=== PATIENT | female | born 1995 | race African-American/Black ===

== ENCOUNTER 2017-10-14 13:32 | Emergency (ER) | payer MEDICARE, OTHER ==
[~2017-10-14] VITALS: Ht 167.6 cm; Wt 57.3 kg
[~2017-10-14 13:32] MED LIST: FOLI1TAB PO; METR-1 PO; MICO2%V VAGINAL
[2017-10-14] MEDS ORDERED: IOHEXOL 350 MG/ML 10 ML VIAL (for RAD DIAG) IVCONTRAST ONE (13:33)
[2017-10-14 13:34] VITALS: BP 115/68; PULSE 72; RESP 18; TEMP 98.9; O2SAT 97
[2017-10-14] MEDS ORDERED: NITR1CAP37 PO (14:45)
[2017-10-14 14:56] LABS: AUTOMATED NEUTROPHIL # 6.3 TH/MM3 (1.8-7.7); BASOPHIL % 0.2 % (0.0-2.0); EOSINOPHIL # 0.4 TH/MM3 (0-0.4); EOSINOPHIL % 3.7 % (0.0-4.0); HEMATOCRIT 22.7 % (35.0-46.0); LYMPH % 25.5 % (9.0-44.0); LYMPHOCYTE # 2.8 TH/MM3 (1.0-4.8); MEAN CELL VOLUME 85.8 FL (80.0-100.0); MEAN CORPUSCULAR HEMOGLOBIN 30.4 PG (27.0-34.0); MEAN CORPUSCULAR HGB CONC 35.4 % (32.0-36.0); MEAN PLATELET VOLUME 9.3 FL (7.0-11.0); MONO % 12.9 % (0.0-8.0); MONOCYTE # 1.4 TH/MM3 (0-0.9); NEUT % 57.7 % (16.0-70.0); PLATELET COUNT 532 TH/MM3 (150-450); RED BLOOD COUNT 2.64 MIL/MM3 (4.00-5.30); RED CELL DISTRIBUTION WIDTH 18.2 % (11.6-17.2)
[2017-10-14 15:09] LABS: BACTERIA, URINE FEW /hpf; BILIRUBIN, URINE NEG (NEG); BLOOD, URINE SMALL (NEG); GLUCOSE,URINE NEG (NEG); KETONE, URINE NEG (NEG); MUCUS URINE FEW /lpf (OCC); NITRITE,URINE NEG (NEG); SQUAMOUS EPITHELIAL CELL URINE 8 /hpf (0-5); URINE COLOR YELLOW (YELLW/STRAW); URINE LEUKOCYTE ESTERASE NEG (NEG)
[2017-10-14 15:14] LABS: ALT (GPT) 23 U/L (10-53); AST (GOT) 49 U/L (15-37); BICARBONATE 25.5 MEQ/L (21.0-32.0); BLOOD UREA NITROGEN 3 MG/DL (7-18); CALCIUM 8.7 MG/DL (8.5-10.1); CHLORIDE 107 MEQ/L (98-107); CREATININE 0.42 MG/DL (0.50-1.00); GLOMERULAR FILTRATION RATE 226 ML/MIN (>89); GLUCOSE,RANDOM 84 MG/DL (74-106); SODIUM (NA) 138 MEQ/L (136-145)
[2017-10-14 15:16] LABS: ALKALINE PHOSPHATASE 82 U/L (45-117); TOTAL BILIRUBIN ADULT 2.6 MG/DL (0.2-1.0)
[2017-10-14] MEDS ORDERED: SODIUM CHLORIDE 0.9% FLUSH 10 ML FLUSH IV FLUSH PRN (16:15)
[2017-10-14] MEDS ORDERED: SODIUM CHLOR 0.9% 1000 ML INJ 1,000 ML IV SCH (16:15)
[2017-10-14] MEDS ORDERED: KETOROLAC TROMETHAMINE 30 MG/ML (IVP) VIAL IVP ONE (16:15)
[2017-10-14 16:28] LABS: OVALOCYTES 1+ (NORMAL); SICKLE CELLS 2+ (NORMAL); STOMATOCYTES 1+ (NORMAL); TARGET CELLS 1+ (NORMAL)
--- NOTE | 2017-10-14 17:32 | RADRPT ---
EXAM DATE/TIME: 10/14/2017 17:16 [place] COMPARISON: No previous studies available for comparison. INDICATIONS : Bilateral back and abdomen pain for for days. IV CONTRAST: 71 cc Omnipaque 350 (iohexol) IV ORAL CONTRAST: No oral contrast ingested. RADIATION DOSE: 6.64 CTDIvol (mGy) MEDICAL HISTORY : Sickle cell disease. SURGICAL HISTORY : Cholecystectomy. ENCOUNTER: Initial ACUITY: 4 - 6 days PAIN SCALE: 4/10 LOCATION: Bilateral lower quadrant TECHNIQUE: Volumetric scanning of the abdomen and pelvis was performed. Using automated exposure control and ad justment of the mA and/or kV according to patient size, radiation dose was kept as low as reasonably achievable to obtain optimal diagnostic quality images. DICOM format image data is available electro nically for review and comparison. FINDINGS: LOWER LUNGS: The visualized lower lungs are clear. LIVER: Homogeneous density without lesion. There is no dilation of the biliary tree. No calcified gallston es. SPLEEN: Small in size without calcification PANCREAS: Within normal limits. KIDNEYS: Normal in size and shape. There is no mass, stone or hydronephrosis. ADRENAL GLANDS: Within normal limits. VASCULAR: There is no aortic aneurysm. BOWEL/MESENTERY: The stomach, small bowel, and colon demonstrate no acute abnormality. There is no free intraperitone al air or fluid. ABDOMINAL WALL: Within normal limits. RETROPERITONEUM: There is no lymphadenopathy. BLADDER: No wall thickening or mass. REPRODUCTIVE: Small cystic mass left adnexa region measuring 1.6 cm nonspecific. Tampon in place INGUINAL: There is no lymphadenopathy or hernia. MUSCULOSKELETAL: Changes typical of sickle cell. CONCLUSION: Bony changes typical of sickle cell. Negative for splenic or renal infarct Spleen size is small.. Michael Tineo MD FACR on October 14, 2017 at 17:28 Board Certified Radiologist. This report was verified electronically.
[2017-10-14] MEDS ORDERED: IBUP1TAB7 PO (17:48)
--- NOTE | 2017-10-14 17:50 | PD ---
HPI Chief Complaint: Abdominal Pain Time Seen by Provider: 15:07 Travel History International Travel<30 days: No Contact w/Intl Traveler<30days: No Traveled to known affect area: No History of Present Illness HPI 22-year-old female, with history of sickle cell, presents to the emergency Department with complaint of bilateral back pain that started on Thursday. Denies injury. Pain is mostly to the left side. Is currently being treated for urinary tract infection and has been taking nitrofurantoin for approximately 2 weeks. Denies dysuria, hematuria, vaginal discharge, vaginal odor. Denies risk of STD/STI. Denies fever, vomiting. Denies diabetes or cancer. Denies encopresis, incontinence, saddle anesthesias. Denies change in urine or stool. Pain is only when she moves. Better with a heating pad. Rates pain 8/10. Been taking ibuprofen and Tylenol for symptom management. Last menstrual period started this morning. No primary care provider. Allergies to fish and eggs. History of sickle cell and heart murmur. Has no medical complaints. No other modifying factors or associated signs and symptoms. PFSH Past Medical History Anemia: Yes Anxiety: Yes Heart Rhythm Problems: Yes (heart murmur) Cancer: No Cardiovascular Problems: Yes Diminished Hearing: No Endocrine: No Genitourinary: No Immune Disorder: No Musculoskeletal: No Neurologic: No Psychiatric: Yes Reproductive: No Respiratory: No Immunizations Current: Yes Sickle Cell Disease: Yes ?: Not LMP: 10/14/2017 Past Surgical History Other Surgery: Yes (gallstones removed) Social History Alcohol Use: Yes (occ) Tobacco Use: No Substance Use: No Allergies-Medications (Allergen,Severity, Reaction): Coded Allergies: Fish Containing Products (Unverified Allergy, Severe, Anaphylaxis, 10/14/17 ) sword fish egg (Unverified Allergy, Severe, Anaphylaxis, 10/14/17) Reported Meds & Prescriptions Reported Meds & Active Scripts Active Ibuprofen 800 Mg Tab 800 Mg PO Q6HR PRN Reported Nitrofurantoin Macrocrystal 50 Mg Cap 50 Mg PO BID Review of Systems Except as stated in HPI: all other systems reviewed are Neg Physical Exam Narrative GENERAL: Well-nourished, well-developed black female patient, in no acute distress; afebrile, nontoxic-appearing SKIN: Warm and dry. No rash. HEAD: Atraumatic. Normocephalic. EYES: Pupils equal and round. No scleral icterus. No injection or drainage. ENT: Mucosa pink and moist. NECK: Trachea midline. CARDIOVASCULAR: Regular rate and rhythm. No murmur appreciated. RESPIRATORY: No accessory muscle use. Clear to auscultation. Breath sounds equal bilaterally. GASTROINTESTINAL: Abdomen soft, non-tender, nondistended. Hepatic and splenic margins not palpable. Bowel sounds are active 4 quadrants. Bladder nontender and nondistended. MUSCULOSKELETAL: Bilateral lower extremities supple and non-tense with 2+ pedal pulses and sensory intact; with full range of motion and 5/5 strength. 2 + DTRs bilaterally. Active dorsiflexion and extension of bilateral feet. Bilateral straight leg raise is negative for low back pain. Ambulatory in room with normal gait. Sitting up in bed at 90. No obvious deformities. No clubbing. No cyanosis. No edema. BACK: Left CVA tenderness. No midline point tenderness on palpation of the lumbar spine. No reproducible Tenderness on palpation of bilateral lumbar paraspinal or iliosacral area. No obvious deformities. NEUROLOGICAL: Awake and alert. Oriented 3. No obvious cranial nerve deficits. Motor grossly within normal limits. Normal speech. Moves all extremities. 5/5 strength to all extremities. PSYCHIATRIC: Appropriate mood and affect; insight and judgment normal. Data Data Last Documented VS Vital Signs Date Time Temp Pulse Resp B/P (MAP) Pulse Ox O2 Delivery O2 Flow Rate FiO2 10/14/17 18:09 10/14/17 13:34 98.9 72 18 97 Room Air Orders Orders Complete Blood Count With Diff (10/14/17 13:38) Comprehensive Metabolic Panel (10/14/17 13:38) Lipase (10/14/17 13:38) Urinalysis - C+S If Indicated (10/14/17 13:38) Ed Urine Pregnancytest Poc (10/14/17 13:38) Ct Abd/Pel W Iv Contrast(Rout) (10/14/17 16:15) Iv Access Insert/Monitor (10/14/17 16:15) Sodium Chlor 0.9% 1000 Ml Inj (Ns 1000 M (10/14/17 16:15) Sodium Chloride 0.9% Flush (Ns Flush) (10/14/17 16:15) Ketorolac Inj (Toradol Inj) (10/14/17 16:15) Iohexol 350 Inj (Omnipaque 350 Inj) (10/14/17 13:33) Ed Discharge Order (10/14/17 17:52) Labs Laboratory Tests Test 10/14/17 14:10 White Blood Count 11.0 TH/MM3 Red Blood Count 2.64 MIL/MM3 Hemoglobin 8.0 GM/DL Hematocrit 22.7 % Mean Corpuscular Volume 85.8 FL Mean Corpuscular Hemoglobin 30.4 PG Mean Corpuscular Hemoglobin Concent 35.4 % Red Cell Distribution Width 18.2 % Platelet Count 532 TH/MM3 Mean Platelet Volume 9.3 FL Neutrophils (%) (Auto) 57.7 % Lymphocytes (%) (Auto) 25.5 % Monocytes (%) (Auto) 12.9 % Eosinophils (%) (Auto) 3.7 % Basophils (%) (Auto) 0.2 % Neutrophils # (Auto) 6.3 TH/MM3 Lymphocytes # (Auto) 2.8 TH/MM3 Monocytes # (Auto) 1.4 TH/MM3 Eosinophils # (Auto) 0.4 TH/MM3 Basophils # (Auto) 0.0 TH/MM3 CBC Comment AUTO DIFF Differential Comment AUTO DIFF CONFIRMED Platelet Estimate NORMAL Platelet Morphology Comment GIANT Sickle Cells 2+ Target Cells 1+ Ovalocytes 1+ Stomatocytes 1+ Urine Color YELLOW Urine Turbidity HAZY Urine pH 5.0 Urine Specific [place] 1.012 Urine Protein NEG mg/dL Urine Glucose (UA) NEG mg/dL Urine Ketones NEG mg/dL Urine Occult Blood SMALL Urine Nitrite NEG Urine Bilirubin NEG Urine Urobilinogen LESS THAN 2.0 MG/DL Urine Leukocyte Esterase NEG Urine RBC 1 /hpf Urine WBC 2 /hpf Urine Squamous Epithelial Cells 8 /hpf Urine Bacteria FEW /hpf Urine Mucus FEW /lpf Microscopic Urinalysis Comment CULT NOT INDICATED Blood Urea Nitrogen 3 MG/DL Creatinine 0.42 MG/DL Random Glucose 84 MG/DL Total Protein 8.0 GM/DL Albumin 4.0 GM/DL Calcium Level 8.7 MG/DL Alkaline Phosphatase 82 U/L Aspartate Amino Transf (AST/SGOT) 49 U/L Alanine Aminotransferase (ALT/SGPT) 23 U/L Total Bilirubin 2.6 MG/DL Sodium Level 138 MEQ/L Potassium Level 3.8 MEQ/L Chloride Level 107 MEQ/L Carbon Dioxide Level 25.5 MEQ/L Anion Gap 6 MEQ/L Estimat Glomerular Filtration Rate 226 ML/MIN Lipase 106 U/L [facility] Medical Decision Making Medical Screen Exam Complete: Yes Emergency Medical Condition: Yes Medical Record Reviewed: Yes Differential Diagnosis Splenic infarction, kidney infarction, UTI, pyelonephritis, low back pain Narrative Course 22-year-old female physical exam consistent with left flank pain. History of sickle cell. I discussed the patient with Dr. Lopez, my attending physician , and he recommends CT abdomen/pelvis to rule out infarct of the spleen or kidney. CBC, CMP, lipase, urinalysis, UPT, CT abdomen/pelvis, IV fluids, Toradol ordered. UPT negative. Hemoglobin 8.0 which is consistent with past levels. Platelets 532. WBC 11.0. Bilirubin 2.6 and AST 49, otherwise CMP unremarkable. Lipase 106. Urinalysis without signs of infection. 174: CT abdomen/pelvis concludes: Bony changes typical of sickle cell. Negative for splenic or renal infarct. Spleen size is small. Patient provided a copy of the CT report. Discussed findings and labs with Dr. Vance at this time and he agrees with outpatient discharge. Ibuprofen prescribed for home. Instructed patient to complete nitrofurantoin as prescribed. Instructed patient to follow up with primary care provider. Patient verbalizes understanding and agreement with treatment plan. Patient is medically cleared and stable for discharge. Discussed reasons to return to the emergency department. Patient agrees with treatment plan. The patients vital signs are stable and the patient is stable for outpatient follow-up and treatment. Patient discharged home, stable and in no acute distress. Diagnosis Primary Impression: Left flank pain Referrals: Primary Care Physician Patient Instructions: Flank Pain (ED), General Instructions Additional Instructions: Continue nitrofurantoin as prescribed Ibuprofen or Tylenol as directed and as needed for pain Warm compresses to affected area to help decrease pain Avoid aggravating activity Follow-up with primary care provider Return to the emergency department immediately if worsening of symptoms Med/Other Pt SpecificInfo: Prescription(s) given, No Change to Meds Scripts Ibuprofen (Ibuprofen) 800 Mg Tab 800 MG PO Q6HR Y for PAIN, #30 TAB 0 Refills Prov: Keturah Layton 10/14/17 Disposition: DISCHARGE HOME Condition: Stable Keturah Layton Oct 14, 2017 17:50
== END 2017-10-14 18:17 | disposition home or self-care (01) ==
LOC: NEPD 13:32
DX: R10.9 Unspecified abdominal pain (principal); D57.1 Sickle-cell disease without crisis; M54.9 Dorsalgia, unspecified; N39.0 Urinary tract infection, site not specified; D64.9 Anemia, unspecified; F41.9 Anxiety disorder, unspecified; R01.1 Cardiac murmur, unspecified
CPT/HCPCS: 74177; 80053; 81001; 83690; 84703; 85025; 96361; 96374; 99284; J1885; J7030; Q9967